=== PATIENT | male | born 1970 | race Hispanic/Latino ===

== ENCOUNTER 2017-06-12 14:30 | Inpatient (IN) | payer SELFPAY ==
[2017-06-12 15:28] LABS: #Basophils 0.1 thou/uL (0.0-0.2); #Eosinphils 0.4 thou/uL (0.0-0.7); #Lymphocytes 1.1 thou/uL (1.20-3.40); #Monocytes 0.6 thou/uL (0.11-0.59); #Neutrophils 5.2 thou/uL (1.40-6.50); %Basophils 1.2 % (0.0-1.0); %Lymphocytes 14.7 % (21.0-51.0); %Monocytes 8.2 % (0.0-10.0); %Neutrophils 69.9 % (42.0-75.0); Hemoglobin 9.4 g/dL (14.0-18.0); Mean Corpuscular HGB CONC 31.7 g/dL (32.0-36.0); Mean Corpuscular Hemoglobin 29.8 pg (27.0-31.0); Mean Corpuscular Volume 93.9 fl (80.0-94.0); Mean Platelet Volume 6.4 fL (7.4-10.4); Platelet Count 507 thou/uL (130-400); RBC Distribution Width 13.2 % (11.5-14.5); Red Blood Cell (RBC) Count 3.15 mill/uL (4.70-6.10); White Blood Cell (WBC) Count 7.5 thou/uL (4.8-10.8)
[2017-06-12 15:54] LABS: ALT (SGPT) Less than 7 U/L (8-55); AST (SGOT) 12 U/L (5-34); Albumin 3.9 g/dL (3.5-5.0); Alkaline Phosphatase 157 U/L (40-150); Anion Gap 23 mmol/L (10-20); BUN (Urea Nitrogen) 53 mg/dL (8.9-20.6); Bilirubin, Total 0.2 mg/dL (0.2-1.2); Calc. Creatinine Clearance 0 mL/min (70-130); Calcium 7.8 mg/dL (7.8-10.44); Carbon Dioxide 15 mmol/L (22-29); Chloride 100 mmol/L (98-107); Estimated GFR-MDRD 5; Globulin 4.1 g/dL (2.4-3.5); Glucose 356 mg/dL (70-105); Potassium 4.9 mmol/L (3.5-5.1); Sodium 133 mmol/L (136-145)
--- NOTE | 2017-06-12 15:56 | RAD ---
RIGHT KNEE RADIOGRAPHS FOUR VIEWS 06/12/17 CLINICAL HISTORY: History of recent right knee surgery with joint pain, erythema and edema. No prior comparisons. FINDINGS: There is abnormal osseous erosion of the medial tibial plateau. There is adjacent flocculent heteroto pic density. There is widening of the intercondylar notch. Multifocal irregular lucencies are seen at the distal femur and proximal tibia. There is adjacent linear oriented density which may relate to s heet-like calcifications of adjacent soft tissues and/or component of periosteal reaction. There is e xtensive joint capsular distention as well as enlargement of the regional knee joint soft tissues. Th e distal thigh tissues appear cachectic. IMPRESSION: Markedly abnormal osseous structures of the knee with prominent joint capsular distention and soft ti ssue swelling. Findings are nonspecific. Primary considerations would include infection with associat ed destruction osteomyelitis. Atypical inflammatory and/or atypical infectious etiologies should be e xcluded clinically. Correlation with ultrasound and associated knee joint aspiration would also be be neficial. POS: ELDER
[2017-06-12] MEDS ORDERED: Ondansetron HCl/PF 4 MG/2 ML Vial IVP PRN ×2 (18:11→23:01)
[2017-06-12] MEDS ORDERED: Ondansetron ODT 4 MG TAB SL PRN (18:11)
[2017-06-12] MEDS ORDERED: Acetaminophen 325 MG TAB PO PRN (18:11)
[2017-06-12 21:27] VITALS: BMI 21.7
[2017-06-12] MEDS ORDERED: Dextrose 5% in Water 1,000 ML IV PRN ×2 (21:42→23:01)
[2017-06-12] MEDS ORDERED: Dextrose 50% Abboject 50 ML SYRINGE IVP PRN (21:42)
[2017-06-12] MEDS: HumaLOG 300 UNITS/3 ML VIAL SC PRN (21:54)
[2017-06-12] MEDS ORDERED: Dextrose 50% Abboject 50 ML SYRINGE SLOW IVP PRN (23:01)
[2017-06-12] MEDS ORDERED: Acetaminophen 500 MG TAB PO PRN (23:01)
[2017-06-12] MEDS ORDERED: hydrALAZINE 20 MG/ML VIAL SLOW IVP PRN (23:01)
[2017-06-12] MEDS ORDERED: cloNIDine 0.1 MG TAB PO PRN (23:01)
[2017-06-12] MEDS ORDERED: Ondansetron ODT 4 MG TAB PO PRN (23:01)
--- NOTE | 2017-06-13 00:25 | HP ---
DATE OF ADMISSION: 06/12/2017 Please note, patient does have two separate medical record numbers in [employer]. PRIMARY CARE PROVIDER: Jere in [place], [place]. CHIEF COMPLAINT: Right knee pain, swelling. HISTORY OF PRESENT ILLNESS: This is a 46-year-old male, [place] Citizen speaking only, who presents to [facility] Emergency Department complaining of increased swelling, pain, a nd limited mobility of the right knee, status post incision and drainage for septic arthritis and ost eomyelitis, acute on chronic most recently 05/28/2017. Patient was placed on IV vancomycin with slid ing scale coverage with hemodialysis on Saturday, Saturday, and Saturday. Patient states he has been re ceiving the vancomycin during his regularly scheduled dialysis treatments at his dialysis center on [facility] in [place], [place]. Patient denied any specific fever, chills, drainage, but did notice increasing swelling with worsening swelling greater than the swelling he initially presen michael to the hospital with 05/26/2017. Patient has had 5-6 incision and drainage of the right knee wit h washout and subsequent IV antibiotic therapy. Patient does have extensive osteomyelitis and degene rative changes of the joint space and distal femur and proximal tibia. Patient was noted with large joint effusion with destructive changes of the medial tibial plateau. Patient was originally schedul ed to receive sliding scale, vancomycin coverage until 07/2017 transitioning to oral Keflex thereafte r. Patient denied any recent fall injury and states he ambulates with a use of crutches. Patient st ates he has been doing dressing changes on his own with cleaning the surface of the wound on the righ t knee with placement of a Tegaderm. In the emergency room, patient underwent general evaluation inc luding plain radiographs showing large joint effusion with degenerative and destructive changes of th e joint space. Patient received IV vancomycin 1 gram and was referred to the Hospitalist Service for admission. PAST MEDICAL HISTORY: 1. End-stage renal disease with hemodialysis on Saturday, Saturday, and Saturday. 2. 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 3. Question of diabetes mellitus, type 2 without current treatment. 4. Hypertension. 5. History of nephrolithiasis. PAST SURGICAL HISTORY: 1. Status post right knee incision and drainage with washout x6, most recently 05/28/2017. 2. Status post appendectomy. 3. Status post renal lithiasis removal. 4. Status post hemodialysis access placement. 5. Status post right leg surgery. CURRENT MEDICATIONS: Reviewed and negative. ALLERGIES: No known drug allergies. FAMILY HISTORY: Positive for hypertension and diabetes. SOCIAL HISTORY: Patient resides in [place], [place]. Currently unemployed. No alcohol, tobacco, or illicit drug use. Ambulatory with use of crutches. REVIEW OF SYSTEMS: The following complete review of systems was otherwise negative, except as stated per HPI: Constitutional: Weight loss or gain, ability to conduct usual activities. Skin: Rash, i tching. Eyes: Double vision, pain. ENT/Mouth: Nose bleeding, neck stiffness, pain, tenderness. C ardiovascular: Palpitations, dyspnea on exertion, orthopnea. Respiratory: Shortness of breath, whe ezing, cough, hemoptysis, fever, or night sweats. Gastrointestinal: Poor appetite, abdominal pain, heartburn, nausea, vomiting, constipation, or diarrhea. Genitourinary: Urgency, frequency, dysuria, nocturia. Musculoskeletal: Pain, swelling. Neurologic/Psychiatric: Anxiety, depression. Allergy /Immunologic: Skin rash, bleeding tendency. PHYSICAL EXAMINATION: VITAL SIGNS: On admission, blood pressure 146/72, pulse 86, respiratory rate is 18, temperature 98.6 degrees Fahrenheit, O2 saturation 98% on room air. GENERAL APPEARANCE: This is a 46-year-old [place] Citizen speaking male, alert, responsive, in no acute dist ress. HEENT: Pupils are equal, round, and reactive to light and accommodation. Extraocular muscles are in tact. No scleral icterus, no conjunctival injection. Nares patent. OP is clear. NECK: Supple, no cervical adenopathy, no thyromegaly, no carotid bruits, no JVD appreciated. Cervic al spine with full active and passive range of motion. No meningeal signs appreciated. CHEST: Lungs are clear to auscultation bilaterally. CARDIOVASCULAR: S1, S2 without noted murmur. Right upper chest with tunneled hemodialysis catheter in the internal jugular venous system. ABDOMEN: Flat, soft, nontender, nondistended. Bowel sounds are positive in all four quadrants. The re is no hepatosplenomegaly, no abdominal bruits, no rebound or guarding appreciated. EXTREMITIES: Large edema with sutures in place with midline linear incision approximately 10-12 cm i n length of the right knee. Positive fluctuance, edema with tenderness to palpation diffusely. No e xpressible discharge. Neurovascularly intact distally. NEUROLOGIC: Cranial nerves II-XII are grossly intact. No focal or lateralizing signs appreciated. PERTINENT LABORATORY AND X-RAY FINDINGS: Sodium 133, potassium 4.9, chloride 100, CO2 of 15, BUN 53, creatinine 11.81, estimated GFR 5, glucose ranged between 290 to 356. Lactic acid level 1.5. CRP 9 .71. CBC showed a white blood cell count of 7.5, hemoglobin 9.4, hematocrit 30, platelet count 507 w ith 70% neutrophils. ESR 79. Bone cultures from right knee dated 05/28/2017 showed no growth. Olu yates culture dated 05/28/2017, negative. Four views of the right knee dated 06/12/2017 showed antonio wadsworth abnormal osseous structures of the knee with joint capsular distention, soft tissue edema, likely osteomyelitis. ASSESSMENT AND PLAN: 1. Acute on chronic right knee septic arthritis with osteomyelitis. Patient will be admitted to the orthopedic floor. We will continue vancomycin, sliding scale with hemodialysis. Continue cefepime 1 gram IV q.12 hours. Consult Orthopedic Surgery service for further evaluation and likely open drai nage of the right knee with likely need for long-term drain placement. Patient with 6 prior surgical interventions of the knee with recurrence of effusion. Continue pain control with oral and IV modal ities. 2. End-stage renal disease with hemodialysis. Consult Nephrology service for timing of maintenance hemodialysis. No current evidence to suggest acute volume overload. 3. Diabetes mellitus, type 2. We will obtain home medication regimen. Insulin sliding scale for re flexive coverage. ADA diet. 4. Hyponatremia. Suspect secondary to hyperglycemia. Repeat sodium level in the a.m. 5. Metabolic acidosis. Suspect chronic secondary to end-stage renal disease. Continue to monitor c linically and repeat CO2 level in the a.m. 6. Prophylaxis. Sequential compression devices while in bed. Pepcid 20 mg p.o. b.i.d. Update teta nus immunization prior to discharge. PT evaluation for functional assessment. 7. Code status is FULL. Surrogate medical decision maker is patient's son.
[2017-06-13] MEDS ORDERED: Cefepime 1 GM, Admixture Fee 1 EACH in Sterile Water 10 ML SLOW IVP SCH (00:45)
[2017-06-13 05:52] LABS: Eosinophils 7 % (0-10); Hemoglobin 9.5 g/dL (14.0-18.0); Lymphocytes 22 % (21-51); MDiff Complete? YES; Mean Corpuscular HGB CONC 32.9 g/dL (32.0-36.0); Mean Corpuscular Hemoglobin 29.9 pg (27.0-31.0); Monocytes 6 % (0-10); Neutrophil 65 % (42-75); PLT Morphology Comment Appears Increased; Platelet Count 518 thou/uL (130-400); RBC Distribution Width 13.2 % (11.5-14.5); Red Blood Cell (RBC) Count 3.18 mill/uL (4.70-6.10); White Blood Cell (WBC) Count 8.6 thou/uL (4.8-10.8)
[2017-06-13 05:58] LABS: Anion Gap 19 mmol/L (10-20); BUN (Urea Nitrogen) 58 mg/dL (8.9-20.6); Calc. Creatinine Clearance 6 mL/min (70-130); Calcium 8.2 mg/dL (7.8-10.44); Carbon Dioxide 15 mmol/L (22-29); Chloride 104 mmol/L (98-107); Estimated GFR-MDRD 4; Glucose 121 mg/dL (70-105); Potassium 4.7 mmol/L (3.5-5.1); Sodium 133 mmol/L (136-145)
[2017-06-13] MEDS ORDERED: Cefepime 1 GM in Sodium Chloride 0.9% 100 ML IVPB SCH (09:00)
[2017-06-13] MEDS: Famotidine 20 MG TAB PO SCH (09:21)
[2017-06-13] MEDS ORDERED: Mag-Al 1200 mg/1200 mg/30 ML UDCUP PO PRN (09:38)
[2017-06-13] MEDS ORDERED: Diabetic Tussin 200 MG/10 ML UDCUP PO PRN (09:38)
[2017-06-13] MEDS ORDERED: Artificial Tears 18 DROP/0.9 ML EA EYE PRN (09:38)
[2017-06-13] MEDS ORDERED: Sodium Chloride 0.65% Nasal 44 ML BOT EA NARE PRN (09:38)
[2017-06-13] MEDS ORDERED: Loratadine 10 MG TAB PO PRN (09:38)
[2017-06-13] MEDS ORDERED: Senokot 8.6 MG TAB PO PRN (09:38)
[2017-06-13] MEDS ORDERED: Eucerin (Mineral Oil/Petrolatum,White) 30 gm Jar TOP PRN (09:38)
[2017-06-13] MEDS ORDERED: Milk Of Magnesia 30 ML UDCUP PO PRN (09:38)
[2017-06-13] MEDS ORDERED: Bisacodyl 10 MG SUPP PR PRN (09:38)
[2017-06-13] MEDS ORDERED: Chloraseptic Spray 180 ml Bottle PO PRN (09:38)
[2017-06-13] MEDS ORDERED: Temazepam 15 MG CAP PO PRN (09:38)
[2017-06-13] MEDS ORDERED: Loperamide HCl 2 MG CAP PO PRN (09:38)
[2017-06-13] MEDS ORDERED: Acetaminophen 500 MG TAB PO PRN (09:39)
--- NOTE | 2017-06-13 09:39 | PDOC.PN ---
- Subjective Encounter Start Date: 06/13/17 Encounter Start Time: 08:00 -: old records requested/rev Patient seen and examined. No new complaints. No overnight events pt has right knee pain - Objective Resuscitation Status: Resuscitation Status FULL:Full Resuscitation MAR Reviewed: Yes Vital Signs & Weight: Vital Signs (12 hours) Temp Pulse Resp BP Pulse Ox 06/13/17 07:50 97.8 F 73 16 149/74 H 99 06/13/17 04:00 97.7 F 70 16 120/76 98 06/12/17 23:01 98.3 F 72 16 134/79 97 I&O: 06/12/17 06/13/17 06/14/17 06:59 06:59 06:59 Intake Total 240 Balance 240 Result Diagrams: 06/13/17 05:22 06/13/17 05:22 Additional Labs: Accuchecks 06/13/17 06/12/17 06:06 20:54 POC Glucose 117 H 290 H Phys Exam - Physical Examination Constitutional: NAD HEENT: PERRLA, moist MMs, sclera anicteric Neck: no JVD, supple Respiratory: no wheezing, no rales, no rhonchi Cardiovascular: RRR, no significant murmur, no rub Gastrointestinal: soft, non-tender, no distention, positive bowel sounds Musculoskeletal: no edema, pulses present right knee swallon and has suture over knee Neurological: non-focal, normal sensation, moves all 4 limbs Psychiatric: normal affect, A&O x 3 Skin: no rash, normal turgor Dx/Plan (1) Septic arthritis of knee, right Code(s): M00.9 - PYOGENIC ARTHRITIS, UNSPECIFIED Status: Acute Comment: acute on chronic (2) Osteomyelitis of right knee region Code(s): M86.9 - OSTEOMYELITIS, UNSPECIFIED Status: Acute Comment: acute on chronic (3) Hyponatremia Code(s): E87.1 - HYPO-OSMOLALITY AND HYPONATREMIA Status: Acute (4) Metabolic acidosis Code(s): E87.2 - ACIDOSIS Status: Acute (5) Anemia of renal disease Code(s): D63.1 - ANEMIA IN CHRONIC KIDNEY DISEASE Status: Chronic (6) Diabetes type 2, controlled Code(s): E11.9 - TYPE 2 DIABETES MELLITUS WITHOUT COMPLICATIONS Status: Chronic (7) ESRD on hemodialysis Code(s): N18.6 - END STAGE RENAL DISEASE; Z99.2 - DEPENDENCE ON RENAL DIALYSIS Status: Chronic (8) Hypertension Code(s): I10 - ESSENTIAL (PRIMARY) HYPERTENSION Status: Chronic (9) Secondary hyperparathyroidism of renal origin Code(s): N25.81 - SECONDARY HYPERPARATHYROIDISM OF RENAL ORIGIN Status: Chronic - Plan cont current plan of care, continue antibiotics * continue cefepime * HD as per nephrology * ortho consulted * medication reviewed as below * symptomatic treatment * repeat labs tomorrow. Review of Systems - Review of Systems Constitutional: negative: fever, chills, sweats, weakness, malaise, other ENT: negative: Ear Pain, Ear Discharge, Nose Pain, Nose Discharge, Nose Congestion, Mouth Pain, Mouth Swelling, Throat Pain, Throat Swelling, Other Respiratory: negative: Cough, Dry, Shortness of Breath, Hemoptysis, SOB with Excertion, Pleuritic Pain, Sputum, Wheezing Cardiovascular: negative: chest pain, palpitations, orthopnea, paroxysmal nocturnal dyspnea, edema, light headedness, other Gastrointestinal: negative: Nausea, Vomiting, Abdominal Pain, Diarrhea, Constipation, Melena, Hematochezia, Other Genitourinary: negative: Dysuria, Frequency, Incontinence, Hematuria, Retention , Other Musculoskeletal: Leg Pain. negative: Neck Pain, Shoulder Pain, Arm Pain, Back Pain, Hand Pain, Foot Pain, Other Skin: negative: Rash, Lesions, Juan, Bruising, Other - Medications/Allergies Allergies/Adverse Reactions: Allergies Allergy/AdvReac Type Severity Reaction Status Date / Time No Known Drug Allergies Allergy Unverified 06/12/17 18:10 Medications: Current Medications Acetaminophen (Tylenol) 1,000 mg PO Q6H PRN PRN Reason: Headache/Fever or Mild Pain Hydrocodone Bitart/Acetaminophen (Baldwin 5/325) 1 tab PO Q4H PRN PRN Reason: Moderate Pain (4-6) Clonidine (Catapres) 0.1 mg PO Q4H PRN PRN Reason: Systolic BP > 180 Dextrose/Water (Dextrose 50%) 25 gm IVP PRN PRN PRN Reason: HYPOGLYCEMIA PROTOCOL Dextrose/Water (Dextrose 50%) 25 gm SLOW IVP PRN PRN PRN Reason: Hypoglycemia Famotidine (Pepcid) 20 mg PO DAILY IVANNA Last Admin: 06/13/17 09:21 Dose: 20 mg Glucagon (Glucagon) 1 mg IM PRN PRN PRN Reason: HYPOGLYCEMIA PROTOCOL Glucagon (Glucagon) 1 mg IM PRN PRN PRN Reason: Hypoglycemia Hydralazine HCl (Apresoline) 10 mg SLOW IVP Q4H PRN PRN Reason: Systolic BP > 180 Dextrose/Water (D5w) 1,000 mls @ 0 mls/hr IV INF PRN; As Directed PRN Reason: HYPOGLYCEMIA PROTOCOL Dextrose/Water (D5w) 1,000 mls @ 0 mls/hr IV .Q0M PRN; As Directed PRN Reason: Hypoglycemia Cefepime HCl 1 gm/Miscellaneous Medication 1 each/ Sterile Water 10 mls @ 120 mls/hr SLOW IVP 2359 IVANNA Insulin Human Lispro (Humalog) 0 units SC .MODERATE SLIDING SC PRN; Protocol PRN Reason: MODERATE SLIDING SCALE Insulin Human Lispro (Humalog) 0 units SC .BEDTIME SLIDING SC PRN; Protocol PRN Reason: BEDTIME SLIDING SCALE Last Admin: 06/12/17 21:54 Dose: 3 unit Ondansetron HCl (Zofran Odt) 4 mg PO Q6H PRN PRN Reason: Nausea/Vomiting Ondansetron HCl (Zofran) 4 mg IVP Q6H PRN PRN Reason: Nausea/Vomiting
[2017-06-13 10:36] LABS: Vancomycin, Random 27.8 ug/mL (See Comment)
--- NOTE | 2017-06-13 11:00 | PRG ---
DATE OF SERVICE: 06/13/2017 NEPHROLOGY PROGRESS NOTE SUBJECTIVE: This is a 46-year-old gentleman being seen on dialysis. The patient denies any nausea, vomiting or chest pain. PHYSICAL EXAMINATION: GENERAL: Patient is awake, alert. VITAL SIGNS: Afebrile, pulse 75, breathing 16, blood pressure 120/76. HEAD/NECK: Normocephalic. Atraumatic. EYES: EOMI. No deformity. EARS: Clear. No ulcers. NOSE: Intact. No lesions. MOUTH: Clear. No discharge. THROAT: Clear. No exudate. LUNGS: Clear. No crackles. CARDIAC: S1, S2. No rub. ABDOMEN: Benign. BS+. GENITALIA/RECTUM: Burns absent. BACK/EXTREMITIES: Edema 0+ Ulcer- NEUROLOGICAL: Alert and motor intact. SKIN: Rash- Bruise- LYMPHATICS: Edema- Ulcer- LABORATORY DATA: Show potassium is 4.6. ASSESSMENT AND PLAN: 1. Stage 6 chronic kidney disease. We will plan dialysis. 2. Hypertension, stable. 3. Metabolic acidosis, plan dialysis. 4. Medications based on glomerular filtration rate are appropriate. 5. Osteomyelitis management per primary team.
--- NOTE | 2017-06-13 11:36 | CON ---
DATE OF CONSULTATION: 06/12/2017 NEPHROLOGY CONSULTATION REASON FOR CONSULTATION: End-stage renal disease for maintenance hemodialysis. HISTORY OF PRESENT ILLNESS: This is a 46-year-old gentleman who missed dialysis and presented for os teomyelitis. The patient denies any nausea, vomiting or chest pain. The patient has a history of no ncompliance and has been treated for osteomyelitis for a few months. The patient has a history of mi ssing dialysis. PAST MEDICAL HISTORY: Significant for end-stage renal disease, hypertension, chronic septic knee art hritis, diabetes mellitus, hypertension, nephrolithiasis, right knee incision, appendectomy, kidney s tone, hemodialysis access. HOME MEDICATIONS: List reviewed. HOSPITAL MEDICATIONS: Reviewed. ALLERGIES: Reviewed. REVIEW OF SYSTEMS: A 15 point review of systems was performed and was negative except for positives noted above. GENERAL: Weakness- HEAD: Headache- NECK: No swelling or lumps. NOSE: No epistaxis or discharge. EYES: No diplopia or pain. RESPIRATORY: Dyspnea- CARDIOVASCULAR: Chest pain- GASTROINTESTINAL: Nausea- /TRACTOR ENGINE ASSEMBLER: Hematuria- MUSCULOSKELETAL: No joint pain. NEUROPSYCHIATIC SYSTEMS: No suicidal ideation. No ideation. SKIN: Denies any rash or ulcer. CONSTITUTIONAL: No fever or chills. PHYSICAL EXAMINATION: GENERAL: Patient is awake, alert. VITAL SIGNS: Afebrile, pulse 82, breathing at 16, blood pressure 146/72. HEAD/NECK: Normocephalic. Atraumatic. EYES: EOMI. No deformity. EARS: Clear. No ulcers. NOSE: Intact. No lesions. MOUTH: Clear. No discharge. THROAT: Clear. No exudate. LUNGS: Clear. No crackles. CARDIAC: S1, S2. No rub. ABDOMEN: Benign. BS+. GENITALIA/RECTUM: Burns absent. BACK/EXTREMITIES: Edema 0+ Ulcer- NEUROLOGICAL: Alert and motor intact. SKIN: Rash- Bruise- LYMPHATICS: Edema- Ulcer- LABORATORY DATA: Show potassium is 4.9. ASSESSMENT AND RECOMMENDATIONS: 1. Stage 6 chronic kidney disease. We will plan dialysis tomorrow. 2. Hypertension, stable. 3. Anemia, stable. 4. Medications based on glomerular filtration rate are appropriate. Vancomycin can be given during dialysis.
[2017-06-13 12:50] LABS: HBSAg Index 0.21 S/CO (0-0.99); Hep B Surf Ag Non-Reactive S/CO (NonReactive)
[2017-06-13] MEDS: HYDROcodone/Acetaminophen 5/325 mg Tablet PO PRN ×2 (15:46→20:25)
[2017-06-13] MEDS: HumaLOG 300 UNITS/3 ML VIAL SC PRN (20:40)
[2017-06-14] MEDS: Cefepime 1 GM, Admixture Fee 1 EACH in Sterile Water 10 ML SLOW IVP SCH ×2 (00:23→23:08)
[2017-06-14] MEDS: HYDROcodone/Acetaminophen 5/325 mg Tablet PO PRN ×4 (04:26→23:10)
[2017-06-14 05:49] LABS: Anion Gap 20 mmol/L (10-20); BUN (Urea Nitrogen) 34 mg/dL (8.9-20.6); CRP (Inflammatory) 7.86 mg/dL (= or < 0.5); Calc. Creatinine Clearance 10 mL/min (70-130); Calcium 8.4 mg/dL (7.8-10.44); Carbon Dioxide 21 mmol/L (22-29); Chloride 99 mmol/L (98-107); Estimated GFR-MDRD 7; Glucose 183 mg/dL (70-105); Potassium 3.9 mmol/L (3.5-5.1); Sodium 136 mmol/L (136-145)
[2017-06-14 05:53] LABS: #Basophils 0.1 thou/uL (0.0-0.2); #Eosinphils 0.4 thou/uL (0.0-0.7); #Lymphocytes 0.9 thou/uL (1.20-3.40); #Monocytes 0.5 thou/uL (0.11-0.59); #Neutrophils 7.7 thou/uL (1.40-6.50); %Eosinophils 4.5 % (0.0-10.0); %Lymphocytes 9.7 % (21.0-51.0); %Monocytes 5.4 % (0.0-10.0); %Neutrophils 79.4 % (42.0-75.0); Hemoglobin 10.3 g/dL (14.0-18.0); Mean Corpuscular HGB CONC 34.1 g/dL (32.0-36.0); Mean Corpuscular Hemoglobin 31.7 pg (27.0-31.0); Mean Corpuscular Volume 93.1 fl (80.0-94.0); Mean Platelet Volume 6.4 fL (7.4-10.4); Platelet Count 527 thou/uL (130-400); RBC Distribution Width 13.1 % (11.5-14.5); Red Blood Cell (RBC) Count 3.24 mill/uL (4.70-6.10); White Blood Cell (WBC) Count 9.7 thou/uL (4.8-10.8)
--- NOTE | 2017-06-14 06:23 | CON ---
DATE OF CONSULTATION: 06/13/2017 HISTORY OF PRESENT ILLNESS: We were asked by the [facility] to see the patient as he has had cont inuing problems with his right knee. The patient has had this right knee issue for quite some time. He is in chronic renal disease, on chronic antibiotics, sees Dr. Antonio. His last knee drainage was around 05/27/2017 was when our group had last seen him. He presented again with knee swelling and pa in. Per seismic interpreter who was with his in the room, he states he has been doing his dialysis and getti ng his antibiotics. He has a brace that he is supposed to be wearing at home. He is not able to put any weight on it and using crutches and walker to get around. The pain does not radiate outside the knee. It stays to the medial side of the knee. PAST MEDICAL HISTORY: Diabetes, nephrolithiasis, chronic renal insufficiency, pancreatitis, osteomye litis right tibia, distal femur with a history of methicillin-susceptible Staphylococcus aureus infec tion. FAMILY HISTORY: Noncontributory. PAST SURGICAL HISTORY: Multiple right knee surgeries, fistula for dialysis. CURRENT MEDICATIONS/ALLERGIES: Can be reviewed from his current H&P from [facility] as can his allergies. PHYSICAL EXAMINATION: GENERAL: Well-nourished male in no acute distress, resting in bed. Speech clear, fluent. Per inter preter, he is answering questions well. Dr. Guzmán and myself are evaluating the patient together. HEENT: Normal exam. NECK: Supple. EXTREMITIES: Upper extremity, equal, normal bulk and tone. Right lower extremity, again knee is brown te edematous and tender to palpation. He still has sutures in from his May visit. He has good sensations in the lower extremities. He is able to move toes, ankles, lower extremities fairly well . More pain to the right with movement. ASSESSMENT: Recurrent ongoing right knee infection/osteomyelitis. PLAN: Dr. Guzmán had a long talk with the patient again, he does not think there is anything surgi elsie we can do for this individual. We can try and tap the knee tomorrow to reduce some of the pres sure and send fluid off to the lab for further evaluation to make sure the antibiotics are working. He has been consulted by Mehul, Nephrology, and Dr. Antonio, Infectious Disease, is on his case. We al so again discussed amputation, which would more likely than not help his infection. The patient stat es he has not had a discussion about amputation in the past, but as we reviewed past notes, there was some mention from Hakan Rasmussen and Roger of possible amputation since this infection is ongoin g and is not eased with multiple surgeries. We will discuss this further with the patient, but we th ink that there is nothing surgically we can do for his knee other than possible amputation. Patient will ponder these recommendations, but we will drain his knee tomorrow and we will get him consented for that. This is Kareem Alejandre PA-C dictating for Dr. Chris Guzmán.
--- NOTE | 2017-06-14 08:27 | PRG ---
DATE OF SERVICE: 06/14/2017 SUBJECTIVE: A 46-year-old gentleman being seen for end-stage renal disease. Patient denies any naus ea, vomiting or chest pain. PHYSICAL EXAMINATION: GENERAL: Patient is awake, alert. VITAL SIGNS: Pulse 76, breathing 16, blood pressure 104/66. OBJECTIVE: See above. Awake, alert, in no acute distress. GENERAL APPEARANCE AND MENTAL STATUS: Fair. HEAD/NECK: Normocephalic. Atraumatic. EYES: EOMI. No deformity. EARS: Clear. No ulcers. NOSE: Intact. No lesions. MOUTH: Clear. No discharge. THROAT: Clear. No exudate. LUNGS: Clear. No crackles. CARDIAC: S1, S2. No rub. ABDOMEN: Benign. BS+. GENITALIA/RECTUM: Burns absent. BACK/EXTREMITIES: Edema 0+ Ulcer- NEUROLOGICAL: Alert and motor intact. SKIN: Rash- Bruise- LYMPHATICS: Edema- Ulcer- LABORATORY: Hemoglobin 10.3. ASSESSMENT AND RECOMMENDATIONS: 1. Stage 6 chronic kidney disease. Continue hemodialysis Saturday, , and Saturday. 2. Hyperkalemia, stable. 3. Medication based on glomerular filtration rate are appropriate.
[2017-06-14] MEDS ORDERED: Lidocaine 1% (PF) 30 ML VIAL ONE (09:19)
[2017-06-14] MEDS: Famotidine 20 MG TAB PO SCH (09:53)
[2017-06-14] MEDS ORDERED: Heparin 1,000 UNITS/ML VIAL ONE (11:11)
[2017-06-14] MEDS ORDERED: Morphine 2 MG/ML SYRINGE SLOW IVP SCH (11:15)
[2017-06-14 13:01] LABS: Synovial Fluid, Protein 5.2 g/dL (Not Available)
[2017-06-14 13:07] LABS: BF Color Pink; Body Fluid Source SYNOVIAL FLUID; Clarity Cloudy/Turbid (Clear); RBC Background Count 0.004; Tube # EDTA
[2017-06-14 13:13] LABS: RBC Count-Automated 156000 /cumm; WBC/NonHematic-Auto 129600 /cumm
--- NOTE | 2017-06-14 14:53 | PDOC.PN ---
- Subjective Encounter Start Date: 06/14/17 Encounter Start Time: 14:51 cc: knee pain Sub: Pt c/o some knee pain - Objective Resuscitation Status: Resuscitation Status FULL:Full Resuscitation Vital Signs & Weight: Vital Signs (12 hours) Temp Pulse Resp BP Pulse Ox 06/14/17 11:34 98.2 F 73 16 105/66 97 06/14/17 08:00 98.2 F 73 16 99 06/14/17 07:17 98.3 F 79 16 102/60 99 06/14/17 04:00 98.4 F 76 20 104/66 96 I&O: 06/13/17 06/14/17 06/15/17 06:59 06:59 06:59 Intake Total 240 980 Output Total 0 Balance 240 980 Result Diagrams: 06/14/17 04:53 06/14/17 04:53 Additional Labs: Accuchecks 06/14/17 06/14/17 06/14/17 11:00 05:58 01:47 POC Glucose 165 H 155 H 138 H 06/13/17 06/13/17 20:13 17:49 POC Glucose 256 H 131 H Phys Exam - Physical Examination Constitutional: NAD HEENT: moist MMs Neck: no JVD Respiratory: no wheezing, no rales, no rhonchi Cardiovascular: RRR, no significant murmur, no rub Gastrointestinal: soft, non-tender, no distention rt knee range of motion Neurological: non-focal, normal sensation, moves all 4 limbs Psychiatric: normal affect, A&O x 3 Dx/Plan - Plan Dx/Plan (1) Septic arthritis of knee, right Code(s): M00.9 - PYOGENIC ARTHRITIS, UNSPECIFIED Status: Acute Comment: acute on chronic (2) Osteomyelitis of right knee region Code(s): M86.9 - OSTEOMYELITIS, UNSPECIFIED Status: Acute Comment: acute on chronic (3) Hyponatremia Code(s): E87.1 - HYPO-OSMOLALITY AND HYPONATREMIA Status: Acute (4) Metabolic acidosis Code(s): E87.2 - ACIDOSIS Status: Acute (5) Anemia of renal disease Code(s): D63.1 - ANEMIA IN CHRONIC KIDNEY DISEASE Status: Chronic (6) Diabetes type 2, controlled Code(s): E11.9 - TYPE 2 DIABETES MELLITUS WITHOUT COMPLICATIONS Status: Chronic (7) ESRD on hemodialysis Code(s): N18.6 - END STAGE RENAL DISEASE; Z99.2 - DEPENDENCE ON RENAL DIALYSIS Status: Chronic (8) Hypertension Code(s): I10 - ESSENTIAL (PRIMARY) HYPERTENSION Status: Chronic (9) Secondary hyperparathyroidism of renal origin Code(s): N25.81 - SECONDARY HYPERPARATHYROIDISM OF RENAL ORIGIN Status: Chronic - Plan s/p tap. appreciate ortho input Will follow fluid culture results Continue HD per nephrology, HD toay repeat labs in am Dose meds renally If culture negtaive and if ok with ortho and neph will dc patient home case d/w pt & RN
--- NOTE | 2017-06-14 17:57 | OP ---
DATE OF PROCEDURE: 06/14/2017 PREPROCEDURAL DIAGNOSIS: Reaccumulated right knee effusion (presumed septic arthritis with osteomyel itis. POSTOPERATIVE DIAGNOSIS: Reaccumulated right knee effusion (presumed septic arthritis with osteomyel itis. PROCEDURE: Bedside needle arthrocentesis, right knee. SURGEON: Nicola Mace PA-C ANESTHESIA: 1% Xylocaine without epinephrine. 2 mg of IV morphine was administered preprocedurally. COMPONENTS USED: 18 gauge needle, 60 mL syringe. Specimen collected approximately 80 mL of purulent brown fluid with positive string sign. DRAINS: None. SPECIMENS: Gram stain culture and sensitivity, cell count with differential glucose, protein, AFB, a nd fungal. PROCEDURE IN DETAIL: After informed consent was obtained at the bedside. The patient positioned verena ropriately, right knee was then prepped and draped in usual sterile fashion. A skin wheal anesthesia , 1% Xylocaine was used, using a Z-line approach, an 18 gauge needle was then introduced into the sup ralateral approach down into the joint. Immediate aspiration revealed approximately 80 mL of purulen t fluid as described and specimen. The joint was milked and needle was withdrawn. All local bleedin g was controlled with pressure and sterile dressing was applied. The procedure was terminated withou t complication. He tolerated this well.
[2017-06-15] MEDS: HYDROcodone/Acetaminophen 5/325 mg Tablet PO PRN ×3 (05:27→14:32)
[2017-06-15 05:44] LABS: #Basophils 0.1 thou/uL (0.0-0.2); #Eosinphils 0.7 thou/uL (0.0-0.7); #Lymphocytes 1.5 thou/uL (1.20-3.40); #Monocytes 0.6 thou/uL (0.11-0.59); #Neutrophils 5.6 thou/uL (1.40-6.50); %Basophils 1.3 % (0.0-1.0); %Eosinophils 7.9 % (0.0-10.0); %Lymphocytes 17.9 % (21.0-51.0); %Monocytes 7.3 % (0.0-10.0); %Neutrophils 65.7 % (42.0-75.0); Hemoglobin 10.8 g/dL (14.0-18.0); Mean Corpuscular HGB CONC 32.8 g/dL (32.0-36.0); Mean Corpuscular Volume 91.7 fl (80.0-94.0); Platelet Count 535 thou/uL (130-400); RBC Distribution Width 13.1 % (11.5-14.5); Red Blood Cell (RBC) Count 3.59 mill/uL (4.70-6.10); White Blood Cell (WBC) Count 8.5 thou/uL (4.8-10.8)
[2017-06-15 06:19] LABS: Anion Gap 15 mmol/L (10-20); BUN (Urea Nitrogen) 24 mg/dL (8.9-20.6); Calc. Creatinine Clearance 12 mL/min (70-130); Carbon Dioxide 27 mmol/L (22-29); Chloride 98 mmol/L (98-107); Estimated GFR-MDRD 9; Glucose 166 mg/dL (70-105); Potassium 3.9 mmol/L (3.5-5.1); Sodium 136 mmol/L (136-145)
[2017-06-15] MEDS: Famotidine 20 MG TAB PO SCH (08:13)
--- NOTE | 2017-06-15 10:35 | PRG ---
DATE OF SERVICE: 06/15/2017 SUBJECTIVE: A 46-year-old gentleman being seen for end-stage renal disease. The patient denies any nausea, vomiting, or chest pain. PHYSICAL EXAMINATION: GENERAL: Patient is awake, alert. VITAL SIGNS: Pulse 72, breathing at 16, blood pressure 104/60. HEAD/NECK: Normocephalic. Atraumatic. EYES: EOMI. No deformity. EARS: Clear. No ulcers. NOSE: Intact. No lesions. MOUTH: Clear. No discharge. THROAT: Clear. No exudate. LUNGS: Clear. No crackles. CARDIAC: S1, S2. No rub. ABDOMEN: Benign. BS+. GENITALIA/RECTUM: Burns absent. BACK/EXTREMITIES: Edema 0+ Ulcer- NEUROLOGICAL: Alert and motor intact. SKIN: Rash- Bruise- LYMPHATICS: Edema- Ulcer- LABORATORY DATA: Show hemoglobin 10.8. ASSESSMENT AND RECOMMENDATIONS: 1. Stage 6 chronic kidney disease, continue on hemodialysis. 2. Hypertension, stable. 3. Anemia, stable. 4. Medications based on glomerular filtration rate are appropriate.
[2017-06-15] MEDS: HumaLOG 300 UNITS/3 ML VIAL SC PRN ×2 (12:18→18:07)
--- NOTE | 2017-06-15 13:10 | PDOC.PN ---
- Subjective Encounter Start Date: 06/15/17 Encounter Start Time: 12:55 Right knee pain.. - Objective Resuscitation Status: Resuscitation Status FULL:Full Resuscitation Vital Signs & Weight: Vital Signs (12 hours) Temp Pulse Resp BP Pulse Ox 06/15/17 11:10 98.2 F 74 16 101/61 98 06/15/17 08:09 98.3 F 72 16 06/15/17 08:05 98.3 F 72 16 98/60 97 06/15/17 04:39 98.2 F 70 18 104/68 98 I&O: 06/14/17 06/15/17 06/16/17 06:59 06:59 06:59 Intake Total 980 1150 Output Total 0 Balance 980 1150 Result Diagrams: 06/15/17 05:26 06/15/17 05:26 Additional Labs: Accuchecks 06/15/17 06/15/17 06/14/17 11:16 04:15 21:16 POC Glucose 304 H 184 H 294 H Phys Exam - Physical Examination HEENT: sclera anicteric Neck: no JVD Respiratory: no rales, clear to auscultation bilateral Cardiovascular: RRR Gastrointestinal: soft Musculoskeletal: no edema Neurological: moves all 4 limbs Psychiatric: A&O x 3 Dx/Plan (1) Osteomyelitis of right knee region Code(s): M86.9 - OSTEOMYELITIS, UNSPECIFIED Status: Acute Plan: Continue antibiotics. Comment: acute on chronic (2) Septic arthritis of knee, right Code(s): M00.9 - PYOGENIC ARTHRITIS, UNSPECIFIED Status: Acute Plan: As above. Comment: acute on chronic (3) Anemia of renal disease Code(s): D63.1 - ANEMIA IN CHRONIC KIDNEY DISEASE Status: Chronic Plan: Continue sliding scale. Comment: Stable.. (4) Diabetes type 2, controlled Code(s): E11.9 - TYPE 2 DIABETES MELLITUS WITHOUT COMPLICATIONS Status: Chronic (5) ESRD on hemodialysis Code(s): N18.6 - END STAGE RENAL DISEASE; Z99.2 - DEPENDENCE ON RENAL DIALYSIS Status: Chronic Plan: HD as per nephrology. f/u chemistry.. (6) Hypertension Code(s): I10 - ESSENTIAL (PRIMARY) HYPERTENSION Status: Chronic Comment: BP controlled. - Plan -: Continue current therapy. * .
[2017-06-16] MEDS: Cefepime 1 GM, Admixture Fee 1 EACH in Sterile Water 10 ML SLOW IVP SCH (00:56)
[2017-06-16] MEDS: HYDROcodone/Acetaminophen 5/325 mg Tablet PO PRN ×2 (00:57→21:03)
[2017-06-16] MEDS: Famotidine 20 MG TAB PO SCH (08:23)
--- NOTE | 2017-06-16 12:51 | PDOC.PN ---
- Subjective Encounter Start Date: 06/16/17 Encounter Start Time: 12:45 -: Expresses no complaint.. - Objective Resuscitation Status: Resuscitation Status FULL:Full Resuscitation Vital Signs & Weight: Vital Signs (12 hours) Temp Pulse Resp BP Pulse Ox 06/16/17 11:54 98.4 F 77 16 124/75 98 06/16/17 08:17 98.0 F 78 18 128/72 98 06/16/17 08:00 98.0 F 78 18 06/16/17 04:00 98.4 F 78 20 116/72 99 I&O: 06/15/17 06/16/17 06/17/17 06:59 06:59 06:59 Intake Total 1150 700 Balance 1150 700 Result Diagrams: 06/15/17 05:26 06/15/17 05:26 Additional Labs: Accuchecks 06/16/17 06/16/17 06/15/17 10:38 05:58 20:22 POC Glucose 227 H 158 H 187 H 06/15/17 17:07 POC Glucose 182 H Phys Exam - Physical Examination HEENT: sclera anicteric Neck: no JVD Respiratory: clear to auscultation bilateral Cardiovascular: RRR Gastrointestinal: non-tender Musculoskeletal: no edema Neurological: moves all 4 limbs Psychiatric: A&O x 3 Dx/Plan (1) Osteomyelitis of right knee region Code(s): M86.9 - OSTEOMYELITIS, UNSPECIFIED Status: Acute Comment: acute on chronic (2) Septic arthritis of knee, right Code(s): M00.9 - PYOGENIC ARTHRITIS, UNSPECIFIED Status: Acute Comment: acute on chronic (3) Anemia of renal disease Code(s): D63.1 - ANEMIA IN CHRONIC KIDNEY DISEASE Status: Chronic Comment: Stable.. (4) Diabetes type 2, controlled Code(s): E11.9 - TYPE 2 DIABETES MELLITUS WITHOUT COMPLICATIONS Status: Chronic (5) ESRD on hemodialysis Code(s): N18.6 - END STAGE RENAL DISEASE; Z99.2 - DEPENDENCE ON RENAL DIALYSIS Status: Chronic (6) Hypertension Code(s): I10 - ESSENTIAL (PRIMARY) HYPERTENSION Status: Chronic Comment: BP controlled. - Plan -: Continue current management. -: f/u with consultants.. * .
--- NOTE | 2017-06-16 13:58 | PRG ---
DATE OF SERVICE: 06/16/2017 SUBJECTIVE: A 46-year-old gentleman being seen for end-stage renal disease. The patient denies any nausea, vomiting or chest pain. PHYSICAL EXAMINATION: GENERAL: Patient is awake, alert. VITAL SIGNS: Afebrile, pulse 77, breathing 16, blood pressure 124/75. HEAD/NECK: Normocephalic. Atraumatic. EYES: EOMI. No deformity. EARS: Clear. No ulcers. NOSE: Intact. No lesions. MOUTH: Clear. No discharge. THROAT: Clear. No exudate. LUNGS: Clear. No crackles. CARDIAC: S1, S2. No rub. ABDOMEN: Benign. BS+. GENITALIA/RECTUM: Burns absent. BACK/EXTREMITIES: Edema 0+ Ulcer- NEUROLOGICAL: Alert and motor intact. SKIN: Rash- Bruise- LYMPHATICS: Edema- Ulcer- LABORATORY DATA: Show hemoglobin 10.8. ASSESSMENT AND RECOMMENDATIONS: 1. Stage 6 chronic kidney disease, plan dialysis tomorrow. 2. Hypertension, stable. 3. Anemia, stable. 4. Medications based on glomerular filtration rate are appropriate.
[2017-06-16] MEDS: HumaLOG 300 UNITS/3 ML VIAL SC PRN (21:00)
[2017-06-17] MEDS: Cefepime 1 GM, Admixture Fee 1 EACH in Sterile Water 10 ML SLOW IVP SCH (00:24)
[2017-06-17] MEDS: HYDROcodone/Acetaminophen 5/325 mg Tablet PO PRN ×3 (08:10→17:38)
[2017-06-17] MEDS: Famotidine 20 MG TAB PO SCH (08:10)
--- NOTE | 2017-06-17 09:51 | PRG ---
DATE OF SERVICE: 06/17/2017 SUBJECTIVE: Patient was seen and examined at bedside and overnight events noted. Patient denies any shortness of breath or chest pain or palpitation. No history of nausea or vomiting or diarrhea or f ever or chills or cramps. OBJECTIVE: GENERAL: This is a well-built male in no apparent distress. VITAL SIGNS: Temperature 98.1, pulse 77, respiratory rate 14, blood pressure 110/68. HEENT: Atraumatic, normocephalic. Oral mucosa is moist. NECK: Supple. CARDIOVASCULAR: S1, S2 heard. Rate and rhythm regular. RESPIRATORY: Clear to auscultation. GASTROINTESTINAL: Abdomen is soft. MUSCULOSKELETAL: No tenderness. No edema. DERMATOLOGIC: No skin rash. NEUROLOGIC: Alert and awake and oriented x3. No focal neurologic deficits. Moving all the extremiti es. PSYCHIATRIC: Mood and affect normal. LABORATORY DATA: Not done today. ASSESSMENT AND PLAN: 1. End-stage renal disease. Continue on hemodialysis as tolerated Saturday, Saturday, and Saturday. 2. Hypertension. Monitor blood pressure. 3. Anemia. Monitor hemoglobin and continue EPI as tolerated. 4. Edema, controlled. 5. Right-sided knee infection. Follow with Orthopedics.
[2017-06-17] MEDS ORDERED: Heparin 10,000 UNITS/1 ML VIAL ONE (13:14)
--- NOTE | 2017-06-17 15:30 | PDOC.PN ---
- Subjective Encounter Start Date: 06/17/17 Encounter Start Time: 13:00 Hali is seen today, speaking, Pt pain is better but unable to walk on the leg, Says pain is improving. - Objective Resuscitation Status: Resuscitation Status FULL:Full Resuscitation MAR Reviewed: Yes Vital Signs & Weight: Vital Signs (12 hours) Temp Pulse Resp BP Pulse Ox 06/17/17 08:25 98.1 F 77 14 97 06/17/17 08:00 98.1 F 77 14 110/68 97 06/17/17 04:00 97.8 F 77 16 112/69 96 I&O: 06/16/17 06/17/17 06/18/17 06:59 06:59 06:59 Intake Total 700 240 Output Total 0 Balance 700 240 Result Diagrams: 06/15/17 05:26 06/15/17 05:26 Additional Labs: Accuchecks 06/17/17 06/16/17 06/16/17 05:19 20:03 15:49 POC Glucose 149 H 275 H 225 H Radiology Reviewed by me: Yes Phys Exam - Physical Examination HEENT: PERRLA, moist MMs Neck: no nodes, no JVD Respiratory: no wheezing, no rales Cardiovascular: RRR, no significant murmur Gastrointestinal: soft, non-tender Musculoskeletal: pulses present, edema present Right Knee Swelling with Reduced Range of Motion. Neurological: non-focal, normal sensation Psychiatric: normal affect, A&O x 3 Dx/Plan (1) Osteomyelitis of right knee region Code(s): M86.9 - OSTEOMYELITIS, UNSPECIFIED Status: Acute Comment: acute on chronic Discussed with Dr. Alejandre today, pt would benefit from AKA as infection is pretty bad and patient is Non complaint with treatment and multiple Comorbididites with recurrent infections. Pt is refusing recommedations. (2) Septic arthritis of knee, right Code(s): M00.9 - PYOGENIC ARTHRITIS, UNSPECIFIED Status: Acute Comment: acute on chronic, pt on IV antibiotics and has Wound Drained with clear signs of infection now, but with high risk of worseing infectuion with repeated admsisions. (3) Anemia of renal disease Code(s): D63.1 - ANEMIA IN CHRONIC KIDNEY DISEASE Status: Chronic Comment: Stable.. (4) Diabetes type 2, controlled Code(s): E11.9 - TYPE 2 DIABETES MELLITUS WITHOUT COMPLICATIONS Status: Chronic (5) ESRD on hemodialysis Code(s): N18.6 - END STAGE RENAL DISEASE; Z99.2 - DEPENDENCE ON RENAL DIALYSIS Status: Chronic Comment: On Scheduled Dialysis. pt is non complainat and miss Dialyssi. (6) Hypertension Code(s): I10 - ESSENTIAL (PRIMARY) HYPERTENSION Status: Chronic Comment: BP controlled. - Plan cont current plan of care, continue antibiotics, PT/OT, DVT proph w/lovenox Plan to Discharge pt home tomorrow and advised to Follow Ortho recomemdatio * . - Discharge Day Encounter end time: 13:35 Review of Systems - Review of Systems Eyes: negative: Pain, Vision Change, Conjunctivae Inflammation, Eyelid Inflammation, Redness, Other ENT: negative: Ear Pain, Ear Discharge, Nose Pain, Nose Discharge, Nose Congestion, Mouth Pain, Mouth Swelling, Throat Pain, Throat Swelling, Other Respiratory: negative: Cough, Dry, Shortness of Breath, Hemoptysis, SOB with Excertion, Pleuritic Pain, Sputum, Wheezing Cardiovascular: negative: chest pain, palpitations, orthopnea, paroxysmal nocturnal dyspnea, edema, light headedness, other Gastrointestinal: negative: Nausea, Vomiting, Abdominal Pain, Diarrhea, Constipation, Melena, Hematochezia, Other Genitourinary: negative: Dysuria, Frequency, Incontinence, Hematuria, Retention , Other Musculoskeletal: Leg Pain Skin: negative: Rash, Lesions, Juan, Bruising, Other - Medications/Allergies Allergies/Adverse Reactions: Allergies Allergy/AdvReac Type Severity Reaction Status Date / Time No Known Drug Allergies Allergy Verified 06/14/17 05:36 Medications: Current Medications Acetaminophen (Tylenol) 500 mg PO Q6H PRN PRN Reason: Headache/Fever or Mild Pain Hydrocodone Bitart/Acetaminophen (Hawley 5/325) 1 tab PO Q4H PRN PRN Reason: Moderate Pain (4-6) Last Admin: 06/17/17 12:18 Dose: 1 tab Al Hydroxide/Mg Hydroxide (Maalox) 15 ml PO Q4H PRN PRN Reason: Heartburn or Indigestion Artificial Tears (Tears Naturale) 0 drop EA EYE PRN PRN PRN Reason: Dry Eyes Bisacodyl (Dulcolax) 10 mg VA DAILYPRN PRN PRN Reason: Constipation Clonidine (Catapres) 0.1 mg PO Q4H PRN PRN Reason: Systolic BP > 180 Dextrose/Water (Dextrose 50%) 25 gm SLOW IVP PRN PRN PRN Reason: Hypoglycemia Famotidine (Pepcid) 20 mg PO DAILY [facility] Last Admin: 06/17/17 08:10 Dose: 20 mg Glucagon (Glucagon) 1 mg IM PRN PRN PRN Reason: Hypoglycemia Guaifenesin (Robitussin Sf) 200 mg PO Q4H PRN PRN Reason: Cough Hydralazine HCl (Apresoline) 10 mg SLOW IVP Q4H PRN PRN Reason: Systolic BP > 180 Dextrose/Water (D5w) 1,000 mls @ 0 mls/hr IV .Q0M PRN; As Directed PRN Reason: Hypoglycemia Cefepime HCl 1 gm/Miscellaneous Medication 1 each/ Sterile Water 10 mls @ 120 mls/hr SLOW IVP 2359 [facility] Last Admin: 06/17/17 00:24 Dose: 10 mls Insulin Human Lispro (Humalog) 0 units SC .MODERATE SLIDING SC PRN; Protocol PRN Reason: MODERATE SLIDING SCALE Last Admin: 06/15/17 18:07 Dose: 2 units Insulin Human Lispro (Humalog) 0 units SC .BEDTIME SLIDING SC PRN; Protocol PRN Reason: BEDTIME SLIDING SCALE Last Admin: 06/16/17 21:00 Dose: 3 unit Loperamide HCl (Imodium) 2 mg PO PRN PRN PRN Reason: Diarrhea/Loose Stools Loratadine (Claritin) 10 mg PO DAILYPRN PRN PRN Reason: Sinus Symptoms Magnesium Hydroxide (Milk Of Magnesium) 30 ml PO DAILYPRN PRN PRN Reason: Constipation Mineral Oil/White Petrolatum (Eucerin Cream) 0 gm TOP BIDPRN PRN PRN Reason: Dry Skin Ondansetron HCl (Zofran Odt) 4 mg PO Q6H PRN PRN Reason: Nausea/Vomiting Last Admin: 06/14/17 23:10 Dose: 4 mg Ondansetron HCl (Zofran) 4 mg IVP Q6H PRN PRN Reason: Nausea/Vomiting Last Admin: 06/14/17 04:19 Dose: 4 mg Phenol (Chloraseptic Holly 180 Ml Bot) 0 ml PO PRN PRN PRN Reason: Sore Throat Senna (Senokot) 2 tab PO HSPRN PRN PRN Reason: Constipation Sodium Chloride (Bentley Nasal Holly 0.65%) 0 ml EA NARE QIDPRN PRN PRN Reason: Nasal Congestion Temazepam (Restoril) 15 mg PO HSPRN PRN PRN Reason: Insomnia
[2017-06-17] MEDS: HumaLOG 300 UNITS/3 ML VIAL SC PRN (21:09)
[2017-06-18] MEDS: Cefepime 1 GM, Admixture Fee 1 EACH in Sterile Water 10 ML SLOW IVP SCH ×2 (00:21→01:38)
[2017-06-18] MEDS: HumaLOG 300 UNITS/3 ML VIAL SC PRN (06:59)
[2017-06-18] MEDS: Famotidine 20 MG TAB PO SCH (07:54)
[2017-06-18] MEDS: HYDROcodone/Acetaminophen 5/325 mg Tablet PO PRN (07:54)
--- NOTE | 2017-06-18 14:15 | DIS ---
DATE OF ADMISSION: 06/12/2017 DATE OF DISCHARGE: 06/18/2017 ADMITTING DIAGNOSIS: Acute on chronic right knee septic arthritis with osteomyelitis. DISCHARGE DIAGNOSIS: Chronic right knee arthritis with history of osteomyelitis. SECONDARY DIAGNOSES: 1. End-stage renal disease. 2. Type 2 diabetes mellitus. 3. Hyponatremia. 4. Metabolic acidosis. CONSULTANTS: Involved in this care is Dr. Colunga from Nephrology and Dr. Kareem Alejandre from Orthopedi cs. PROCEDURES DONE DURING THIS ADMISSION: Arthrocentesis with tapping the knee fluid. Microbiology did not show any growth of organisms in the body fluid culture and the blood culture was also negative. HISTORY OF PRESENT ILLNESS AND HOSPITAL COURSE: In brief, this is a 46-year-old male with a known history of septic knee with multiple admissions. Patient came in with complaining of increasi ng swelling and limited mobility of the right knee, status post incision and drainage of septic arthr itis and osteomyelitis with acute on chronic, most recently from 05/2012. Patient was placed on IV v ancomycin and sliding scale coverage with hemodialysis on Saturday, Saturday, and Saturday. Patient sta maile he has been receiving the vancomycin during his regular scheduled dialysis treatment at his [facility] and patient denied any specific fever, chills, but he noticed some in creasing swelling of the joint. Patient was noted to have a large joint effusion with destructive ch anges in the medial tibial plateau and the patient was originally scheduled to receive sliding scale, vancomycin coverage until the 07/2017 and then transitioning to oral Keflex. As the patient was get ting worsening pain, he was admitted and had arthrocentesis done by Orthopedics, which did not grow a ny bacteria. Patient was getting a regular dialysis while he was here and vancomycin as per the prev ious schedule. After discussion with the Orthopedics it was decided that the patient is recommended amputation of his right knee with above knee amputation. As the patient is very noncompliant with hi s medications and is not following orthopedic recommendations of nonweightbearing. The patient is ge tting in no inflammatories fluid in the joint. I discussed this with the patient along with the yamileth nelson on the day of discharge and advised to follow up with orthopedics for further evaluation of hi s amputation. Patient was discharged home in stable condition and advised to follow up with the dial ysis team for continuing on the antibiotic regimen as discussed before. PHYSICAL EXAMINATION: VITAL SIGNS: Blood pressures are 104/57, heart rate is 83, respiration rate 18, saturation 96%. GENERAL: The patient is moderately built and moderately nourished, does not appear to be in acute di stress. CARDIOVASCULAR: S1, S2 normal. No murmurs, rubs, or gallops. LUNGS: Bilateral air entry was equal. No wheezing. No crackles. EXTREMITIES: Right knee has no evidence of any pain at this time. No redness, no erythema was noted . His pain is much improved now according to him. HOME MEDICATIONS: No home medications were noted at this time. Patient will follow up with Nephrolo gy team. We will continue with the vancomycin treatment during dialysis until it was prescribed by [facility]ud[facility]. DISCHARGE INSTRUCTIONS: Continue activity as tolerated. Advised to follow orthopedic recommendation s and advised to follow up with Nephrology for hemodialysis as scheduled before. Advised to return t o the ER, if the patient develops any worsening pain in the knee. Dictating physician, Giuseppe Campos has spent 35 minutes of this patient on the day of discharge.
[2017-06-18 15:45] VITALS: BP 91/55; TEMP 98
--- NOTE | 2017-06-18 22:10 | PRG ---
DATE OF SERVICE: 06/18/2017 SUBJECTIVE: Patient was seen and examined at bedside and overnight events noted. Patient denies any shortness of breath or chest pain or palpitation. No history of nausea or vomiting or diarrhea or f ever or chills or cramps. OBJECTIVE: GENERAL: This is a well-built male in no apparent distress. VITAL SIGNS: Temperature 98.0, pulse 99, respiratory rate 18, blood pressure 91/55. HEENT: Atraumatic, normocephalic. Oral mucosa is moist. NECK: Supple CARDIOVASCULAR: S1, S2 heard. Rate and rhythm regular. RESPIRATORY: Clear to auscultation. GASTROINTESTINAL: Abdomen is soft. MUSCULOSKELETAL: No tenderness. No edema. DERMATOLOGIC: No skin rash NEUROLOGIC: Alert and awake and oriented x3. No focal neurologic deficits. Moving all the extremit ies. PSYCHIATRIC: Mood and affect normal. LABORATORY DATA: Not done today. ASSESSMENT AND PLAN: 1. End-stage renal disease, currently on hemodialysis. 2. Hypertension, stable. 3. Anemia. 4. Edema, controlled. 5. We will continue dialysis as tolerated Saturday, Saturday, Saturday.
== END 2017-06-18 16:20 | disposition home or self-care (01) | DRG 548 ==
LOC: ERS 14:30 → SURG A 17:55
PROVIDERS: ADMIT Internal Medicine; ATTEND Internal Medicine
PROC: 5A1D70Z Performance of Urinary Filtration, Intermittent, Less than 6 Hours Per Day (ICD-10-PCS; 2017-06-13)
PROC: 0S9C3ZX Drainage of Right Knee Joint, Percutaneous Approach, Diagnostic (ICD-10-PCS; principal; 2017-06-14)
PROC: 5A1D70Z Performance of Urinary Filtration, Intermittent, Less than 6 Hours Per Day (ICD-10-PCS; 2017-06-14)
PROC: 5A1D70Z Performance of Urinary Filtration, Intermittent, Less than 6 Hours Per Day (ICD-10-PCS; 2017-06-17)
DX: M00.9 Pyogenic arthritis, unspecified (principal); N18.6 End stage renal disease; E11.22 Type 2 diabetes mellitus with diabetic chronic kidney disease; M86.18 Other acute osteomyelitis, other site; E11.69 Type 2 diabetes mellitus with other specified complication; E11.65 Type 2 diabetes mellitus with hyperglycemia; E87.1 Hypo-osmolality and hyponatremia; M86.68 Other chronic osteomyelitis, other site; I12.0 Hypertensive chronic kidney disease with stage 5 chronic kidney disease or end stage renal disease; E87.2 Acidosis; N25.81 Secondary hyperparathyroidism of renal origin; M25.461 Effusion, right knee; Z99.2 Dependence on renal dialysis; Z98.890 Other specified postprocedural states; Z95.828 Presence of other vascular implants and grafts; E87.5 Hyperkalemia; Z91.14 Patient's other noncompliance with medication regimen; D63.1 Anemia in chronic kidney disease; Z87.891 Personal history of nicotine dependence
CPT/HCPCS: 36415; 36416; 80048; 80053; 80202; 82945; 83605; 84157; 85007; 85025; 85027; 85060; 85652; 86140; 87040; 87070; 87205; 87340; 89051; 90935; 96365; A4216; G0257; G8978-GP-CI; G8979-GP-CI; G8980-GP-CI; J0692; J1644; J2001; J2270; J2405; J3370; Q0162